=== PATIENT | female | born 1965 | race Caucasian/White ===

== ENCOUNTER 2017-06-17 09:18 | Inpatient (IN) | payer MEDICAID ==
[~2017-06-17] VITALS: Ht 167.6 cm; Wt 82.0 kg
[~2017-06-17 09:18] MED LIST: FLUC100T8 PO
[2017-06-17 10:01] LABS: BASOPHILS % (AUTO) 0.3 % (0-1); EOSINOPHILS # (AUTO) 0.2 X10'3 (0-0.9); HEMATOCRIT 43.1 % (35.0-45.0); HEMOGLOBIN 14.8 g/dl (12.0-16.0); LYMPHOCYTES # (AUTO) 1.6 X10'3 (1.1-4.8); LYMPHOCYTES % (AUTO) 15.9 % (21-51); MEAN CORPUSCULAR HEMOGLOBIN 32.4 PG (27.0-31.0); MEAN CORPUSCULAR HGB CONC 34.4 % (33.0-36.5); MEAN CORPUSCULAR VOLUME 94.2 FL (78-98); MEAN PLATELET VOLUME 8.2 FL (7.4-10.4); MONOCYTES # (AUTO) 0.5 X10'3 (0-0.9); MONOCYTES % (AUTO) 5.1 % (2-12); NEUTROPHILS # (AUTO) 7.9 X10'3 (1.8-7.7); NEUTROPHILS % (AUTO) 76.7 % (42-75); PLATELET COUNT 303 X10'3 (140-440); RED BLOOD COUNT 4.58 X10'6 (4.20-5.60); RED CELL DISTRIBUTION WIDTH 13.9 % (11.5-14.5); WHITE BLOOD COUNT 10.3 X10'3 (4.5-11.0)
[2017-06-17 10:14] LABS: ALANINE AMINOTRANSFERASE 17 U/L (12-78); ALBUMIN 3.9 G/DL (3.4-5.0); ALBUMIN/GLOBULIN RATIO 1.1 (1.1-1.5); ALKALINE PHOSPHATASE 66 IU/L (46-116); ANION GAP 9 (8-16); ASPARTATE AMINO TRANSFERASE 7 U/L (10-37); BILIRUBIN,TOTAL 0.3 MG/DL (0.1-1.0); BLOOD UREA NITROGEN 15 MG/DL (7-18); BUN/CREATININE RATIO 18.8 (6.6-38.0); CHLORIDE 109 MMOL/L (99-107); GLUCOSE 122 MG/DL (70-104); LIPASE 79 U/L (73-393); POTASSIUM 3.6 MMOL/L (3.5-5.1); SODIUM 143 MMOL/L (135-145); TOTAL CARBON DIOXIDE 25.5 MMOL/L (24-32); TOTAL PROTEIN 7.5 G/DL (6.4-8.2); eGFR 75 ML/MIN
[2017-06-17 10:16] LABS: URINE HCG NEGATIVE (NEG)
[2017-06-17 10:25] LABS: CLARITY,URINE SLIGHTLY CLOUDY (Clear); GLUCOSE, URINE NEGATIVE (Neg); KETONES,URINE TRACE mg/dl (Neg); LEUKOCYTE ESTERASE ,URINE NEGATIVE (Neg); NITRITES, URINE NEGATIVE (Neg); OCCULT BLOOD,URINE LARGE (Neg); PROTEIN,URINE NEGATIVE (Neg); UROBILINOGEN,URINE 0.2 E.U/dL (0.2-1.0)
[2017-06-17 10:26] LABS: COLOR,URINE DARK YELLOW (Yellow); UA COLLECTION TYPE CLN CATCH MIDSTREAM
[2017-06-17 10:33] LABS: WBC,URINE 0-4 /HPF (0-4)
[2017-06-17 10:34] LABS: BACTERIA,URINE FEW /HPF (Neg); MUCUS STRANDS MANY /LPF (Neg); RBC,URINE NONE SEEN /HPF (0-2); SQUAMOUS EPITHELIAL CELL,UR MANY /LPF (FEW)
[2017-06-17] MEDS ORDERED: normal saline 1000ml 1,000 ML IV SCH (10:45)
[2017-06-17] MEDS ORDERED: morphine 5 MG/ML injection IV ONE (10:45)
[2017-06-17] MEDS ORDERED: ondansetron/PF 4mg/2ml inj IV ONE (10:45)
[2017-06-17] MEDS ORDERED: morphine 2 MG/ML inj. syringe IV ONE ×2 (10:55→11:50)
[2017-06-17] MEDS: normal saline 1000ml 1,000 ML IV SCH ×2 (12:32→17:43)
[2017-06-17] MEDS ORDERED: HYDROcodone/acetaminophen 5mg/325mg tablet PO PRN (12:35)
[2017-06-17] MEDS ORDERED: magnesium 2GM in 50ml NS 50 ML IV PRN (12:35)
[2017-06-17] MEDS ORDERED: mag hydrox/Alum hydrox/simeth 30ml oral suspension PO PRN (12:35)
[2017-06-17] MEDS ORDERED: potassium Cl 40MEQ/NS 500ml 500 ML IV PRN ×2 (12:35)
[2017-06-17] MEDS ORDERED: ondansetron/PF 4mg/2ml inj IV PRN (12:35)
[2017-06-17] MEDS ORDERED: morphine 2 MG/ML inj. syringe IV PRN ×2 (12:35)
[2017-06-17] MEDS ORDERED: potassium Cl 20 mEq SR tablet PO PRN ×2 (12:35)
[2017-06-17] MEDS ORDERED: magnesium 4gm in 100ml NS 100 ML IV PRN (12:35)
[2017-06-17] MEDS ORDERED: acetaminophen 325mg tablet PO PRN ×2 (12:35)
[2017-06-17] MEDS ORDERED: magnesium Cl slow-release 64mg tablet PO PRN (12:35)
[2017-06-17] MEDS ORDERED: nicotine 21mg patch - 24 hr TD ONE (12:55)
[2017-06-17] MEDS ORDERED: BUS15T (12:58)
[2017-06-17] MEDS: metroNIDAZOLE 500mg tablet PO SCH ×2 (13:01→23:35)
[2017-06-17] MEDS ORDERED: TOPI100T18 PO (13:03)
[2017-06-17] MEDS ORDERED: OMEP20TA23 PO (13:04)
[2017-06-17] MEDS ORDERED: TIOT4MIS5 (13:05)
[2017-06-17] MEDS ORDERED: NALT50TA PO (13:06)
[2017-06-17 14:07] VITALS: BP 105/64
[2017-06-17 20:00] VITALS: BP 115/68
[2017-06-17] MEDS: HYDROcodone/acetaminophen 10/325mg tab PO PRN (20:33)
[2017-06-17] MEDS: docusate sod 100mg capsule PO SCH (20:34)
[2017-06-17] MEDS ORDERED: temazepam 15mg capsule PO PRN (21:00)
[2017-06-17] MEDS: diatr meglu/diatrizoate 30ml oral sol.-(3 dose) bottle PO SCH (21:22)
[2017-06-18] VITALS: BP 110/66
[2017-06-18] MEDS: HYDROcodone/acetaminophen 10/325mg tab PO PRN ×2 (01:13→05:13)
[2017-06-18] MEDS: normal saline 1000ml 1,000 ML IV SCH ×2 (01:14→08:53)
[2017-06-18 05:50] LABS: BASOPHILS % (AUTO) 0.4 % (0-1); EOSINOPHILS # (AUTO) 0.3 X10'3 (0-0.9); EOSINOPHILS % (AUTO) 3.7 % (0-6); HEMATOCRIT 36.1 % (35.0-45.0); HEMOGLOBIN 12.5 g/dl (12.0-16.0); LYMPHOCYTES # (AUTO) 2.8 X10'3 (1.1-4.8); LYMPHOCYTES % (AUTO) 37.1 % (21-51); MEAN CORPUSCULAR HEMOGLOBIN 32.1 PG (27.0-31.0); MEAN CORPUSCULAR HGB CONC 34.5 % (33.0-36.5); MEAN PLATELET VOLUME 7.9 FL (7.4-10.4); MONOCYTES # (AUTO) 0.6 X10'3 (0-0.9); MONOCYTES % (AUTO) 7.5 % (2-12); NEUTROPHILS # (AUTO) 3.8 X10'3 (1.8-7.7); NEUTROPHILS % (AUTO) 51.3 % (42-75); PLATELET COUNT 240 X10'3 (140-440); RED BLOOD COUNT 3.89 X10'6 (4.20-5.60); RED CELL DISTRIBUTION WIDTH 13.7 % (11.5-14.5); WHITE BLOOD COUNT 7.5 X10'3 (4.5-11.0)
[2017-06-18 06:27] LABS: ALANINE AMINOTRANSFERASE 16 U/L (12-78); ALKALINE PHOSPHATASE 53 IU/L (46-116); ANION GAP 8 (8-16); ASPARTATE AMINO TRANSFERASE 9 U/L (10-37); BILIRUBIN,TOTAL 0.4 MG/DL (0.1-1.0); BLOOD UREA NITROGEN 10 MG/DL (7-18); BUN/CREATININE RATIO 12.5 (6.6-38.0); CALCIUM 7.8 MG/DL (8.5-10.1); CHLORIDE 111 MMOL/L (99-107); GLUCOSE 88 MG/DL (70-104); MAGNESIUM 1.7 MG/DL (1.5-2.4); POTASSIUM 3.2 MMOL/L (3.5-5.1); SODIUM 144 MMOL/L (135-145); TOTAL CARBON DIOXIDE 24.9 MMOL/L (24-32); TOTAL PROTEIN 5.9 G/DL (6.4-8.2); eGFR 75 ML/MIN
[2017-06-18 07:41] VITALS: BP 106/68
[2017-06-18] MEDS ORDERED: K and/or MAG REPLACEMENT MC SCH (08:00)
[2017-06-18] MEDS ORDERED: enoxaparin 40mg/0.4ml syringe SQ SCH (08:00)
[2017-06-18] MEDS: diatr meglu/diatrizoate 30ml oral sol.-(3 dose) bottle PO SCH ×2 (08:30→10:45)
[2017-06-18] MEDS: metroNIDAZOLE 500mg tablet PO SCH (08:30)
[2017-06-18] MEDS: docusate sod 100mg capsule PO SCH (08:31)
[2017-06-18] MEDS ORDERED: iohexol 300mg/ml 100ml inj. ONE (10:35)
[2017-06-18 11:56] VITALS: BP 102/70
[2017-06-18] MEDS ORDERED: NAPR-56 PO (13:12)
[2017-06-18] MEDS ORDERED: lactobacillus rhamnosus 10,000 MMU CELLS/CAPSULE PO SCH (17:30)
[2017-06-19] MEDS ORDERED: pantoprazole 40mg Tablet.DR PO SCH (07:30)
[2017-06-19] MEDS ORDERED: topiramate 100mg tablet PO SCH (08:00)
[2017-06-19] MEDS ORDERED: naltrexone 50mg tablet PO SCH (08:00)
== END 2017-06-18 15:27 | disposition home IV services (08) | DRG 244 ==
LOC: ER 09:18 → ED HOLD 11:57 → SUR 3N 13:49
PROVIDERS: ADMIT Internal Medicine; ATTEND Internal Medicine
PROC: BW211ZZ Computerized Tomography (CT Scan) of Abdomen and Pelvis using Low Osmolar Contrast (ICD-10-PCS; principal; 2017-06-18)
DX: K57.32 Diverticulitis of large intestine without perforation or abscess without bleeding (principal); N20.0 Calculus of kidney; D35.02 Benign neoplasm of left adrenal gland; F41.9 Anxiety disorder, unspecified; M79.7 Fibromyalgia; J45.909 Unspecified asthma, uncomplicated; K52.9 Noninfective gastroenteritis and colitis, unspecified; Z88.2 Allergy status to sulfonamides
CPT/HCPCS: 36415; 74176; 76700; 76856; 80053; 81001; 81025; 83605; 83690; 83735; 85025; 87040; 87070; 87088; 96361; 96374; 96375; 99285; A4353; J1650; J2270; J2405; J3490; J7030; Q9963; Q9967

== ENCOUNTER 2018-09-30 06:50 | Emergency (ER) | payer MEDICARE, MEDICAID ==
[~2018-09-30] VITALS: Ht 167.6 cm; Wt 74.4 kg
[~2018-09-30 06:50] MED LIST changes: +BUS15T; -FLUC100T8 PO; +NALT50TA PO; +OMEP20TA23 PO; +TIOT4MIS5; +TOP100T PO
[2018-09-30 08:13] LABS: BASOPHILS % (AUTO) 0.3 % (0-1); EOSINOPHILS # (AUTO) 0.3 X10'3 (0-0.9); EOSINOPHILS % (AUTO) 2.5 % (0-6); HEMATOCRIT 42.1 % (35.0-45.0); HEMOGLOBIN 14.3 g/dl (12.0-16.0); LYMPHOCYTES # (AUTO) 2.7 X10'3 (1.1-4.8); LYMPHOCYTES % (AUTO) 23.4 % (21-51); MEAN CORPUSCULAR HEMOGLOBIN 32.5 PG (27.0-31.0); MEAN CORPUSCULAR HGB CONC 33.9 g/dL (33.0-36.5); MEAN CORPUSCULAR VOLUME 95.7 FL (78-98); MEAN PLATELET VOLUME 7.2 FL (7.4-10.4); MONOCYTES # (AUTO) 0.6 X10'3 (0-0.9); MONOCYTES % (AUTO) 5.5 % (2-12); NEUTROPHILS # (AUTO) 7.9 X10'3 (1.8-7.7); NEUTROPHILS % (AUTO) 68.3 % (42-75); PLATELET COUNT 298 X10'3 (140-440); WHITE BLOOD COUNT 11.6 X10'3 (4.5-11.0)
[2018-09-30 08:27] LABS: ALANINE AMINOTRANSFERASE 17 U/L (12-78); ALBUMIN 3.7 G/DL (3.4-5.0); ALKALINE PHOSPHATASE 77 IU/L (46-116); ANION GAP 7 (8-16); ASPARTATE AMINO TRANSFERASE 11 U/L (10-37); BILIRUBIN,TOTAL 0.2 MG/DL (0.1-1.0); BLOOD UREA NITROGEN 11 MG/DL (7-18); BUN/CREATININE RATIO 14.1 (6.6-38.0); CALCIUM 9.5 MG/DL (8.5-10.1); CHLORIDE 108 MMOL/L (99-107); CREATININE 0.78 MG/DL (0.40-0.90); GLUCOSE 101 MG/DL (70-104); POTASSIUM 3.9 MMOL/L (3.5-5.1); SODIUM 141 MMOL/L (135-145); TOTAL PROTEIN 7.3 G/DL (6.4-8.2); eGFR 77 ML/MIN
[2018-09-30 08:28] VITALS: BP 125/64
[2018-09-30 08:43] LABS: CLARITY,URINE CLEAR (Clear); COLOR,URINE STRAW (Yellow); GLUCOSE, URINE NEGATIVE (Neg); KETONES,URINE NEGATIVE (Neg); LEUKOCYTE ESTERASE ,URINE NEGATIVE (Neg); NITRITES, URINE NEGATIVE (Neg); OCCULT BLOOD,URINE NEGATIVE (Neg); PH,URINE 5.5 (4.8-8.0); PROTEIN,URINE NEGATIVE (Neg); UROBILINOGEN,URINE 0.2 E.U/dL (0.2-1.0)
[2018-09-30 08:45] LABS: UA COLLECTION TYPE CLN CATCH MIDSTREAM
[2018-09-30] MEDS ORDERED: PRED20TA PO (08:52)
== END 2018-09-30 09:03 | disposition home or self-care (01) ==
LOC: ER 06:50
DX: M79.89 Other specified soft tissue disorders (principal); J45.909 Unspecified asthma, uncomplicated; F17.200 Nicotine dependence, unspecified, uncomplicated; F12.90 Cannabis use, unspecified, uncomplicated; Z88.2 Allergy status to sulfonamides; Z88.5 Allergy status to narcotic agent; Z88.8 Allergy status to other drugs, medicaments and biological substances; Z79.899 Other long term (current) drug therapy; Z98.890 Other specified postprocedural states
CPT/HCPCS: 36415; 80053; 81003; 84550; 85025; 99283

== ENCOUNTER 2019-06-04 10:21 | Emergency (ER) | payer MEDICARE, MEDICAID ==
[~2019-06-04] VITALS: Ht 167.6 cm; Wt 69.5 kg
[2019-06-04 10:22] VITALS: BP 124/85
[2019-06-04] MEDS ORDERED: LIDOcaine 5% patch TP STA (11:23)
[2019-06-04] MEDS ORDERED: ketorolac tromethamine 15mg/ml inj. IM ONE (11:25)
[2019-06-04] MEDS ORDERED: CYCL-1 PO (12:45)
== END 2019-06-04 13:03 | disposition home or self-care (01) ==
LOC: ER 10:21
DX: M54.2 Cervicalgia (principal); M54.6 Pain in thoracic spine; J45.909 Unspecified asthma, uncomplicated; G89.29 Other chronic pain; M79.7 Fibromyalgia; F12.90 Cannabis use, unspecified, uncomplicated; Z90.89 Acquired absence of other organs; Z88.2 Allergy status to sulfonamides; Z88.5 Allergy status to narcotic agent; Z79.899 Other long term (current) drug therapy; W01.198A Fall on same level from slipping, tripping and stumbling with subsequent striking against other object, initial encounter; Y93.89 Activity, other specified; Y92.098 Other place in other non-institutional residence as the place of occurrence of the external cause; Y99.9 Unspecified external cause status
CPT/HCPCS: 72040; 72074; 96372; 99284; J1885

== ENCOUNTER 2020-10-09 14:35 | Emergency (ER) | payer MEDICARE, MEDICAID ==
[~2020-10-09] VITALS: Ht 167.6 cm; Wt 89.4 kg
[~2020-10-09 14:35] MED LIST changes: +CYCL-1 PO
[2020-10-09 15:03] VITALS: BP 146/96
[2020-10-09] MEDS ORDERED: Cipro HC otic suspension 10ML bottle EACH EAR STA (16:16)
== END 2020-10-09 16:38 | disposition home or self-care (01) ==
LOC: ER 14:36
DX: H66.91 Otitis media, unspecified, right ear (principal); H92.01 Otalgia, right ear; H72.91 Unspecified perforation of tympanic membrane, right ear; J45.909 Unspecified asthma, uncomplicated; G89.29 Other chronic pain; F41.9 Anxiety disorder, unspecified; F12.90 Cannabis use, unspecified, uncomplicated; Z90.89 Acquired absence of other organs; Z88.2 Allergy status to sulfonamides; Z88.5 Allergy status to narcotic agent; Z88.8 Allergy status to other drugs, medicaments and biological substances; Z79.899 Other long term (current) drug therapy
CPT/HCPCS: 99281

== ENCOUNTER 2021-01-24 10:57 | Emergency (ER) | payer MEDICARE, MEDICAID ==
[~2021-01-24] VITALS: Ht 167.6 cm; Wt 80.0 kg
[2021-01-24 13:02] VITALS: BP 143/67
== END 2021-01-24 13:04 | disposition home or self-care (01) ==
LOC: ER 10:58
DX: M79.604 Pain in right leg (principal); R60.0 Localized edema; J45.909 Unspecified asthma, uncomplicated; G89.29 Other chronic pain; F41.9 Anxiety disorder, unspecified; F12.90 Cannabis use, unspecified, uncomplicated; Z90.89 Acquired absence of other organs; Z98.890 Other specified postprocedural states; Z88.2 Allergy status to sulfonamides; Z88.5 Allergy status to narcotic agent; Z88.8 Allergy status to other drugs, medicaments and biological substances; Z79.899 Other long term (current) drug therapy
CPT/HCPCS: 93971; 99284

== ENCOUNTER 2021-12-16 10:10 | Emergency (ER) | payer MEDICARE, MEDICAID ==
[~2021-12-16] VITALS: Ht 167.6 cm; Wt 75.0 kg
[2021-12-16 10:12] VITALS: BP 111/75
== END 2021-12-16 11:56 | disposition home or self-care (01) ==
LOC: ER 10:11
DX: M71.21 Synovial cyst of popliteal space [Baker], right knee (principal); I80.01 Phlebitis and thrombophlebitis of superficial vessels of right lower extremity; G89.29 Other chronic pain; M54.9 Dorsalgia, unspecified; F41.9 Anxiety disorder, unspecified; J45.909 Unspecified asthma, uncomplicated; F17.200 Nicotine dependence, unspecified, uncomplicated; F12.10 Cannabis abuse, uncomplicated; Z88.2 Allergy status to sulfonamides; Z79.899 Other long term (current) drug therapy; Z88.5 Allergy status to narcotic agent
CPT/HCPCS: 93971; 99284

== ENCOUNTER 2022-04-11 10:11 | Emergency (ER) | payer MEDICARE, MEDICAID ==
[~2022-04-11] VITALS: Ht 167.6 cm; Wt 72.0 kg
[2022-04-11 10:27] VITALS: BP 108/78
[2022-04-11] MEDS ORDERED: ibuprofen tablet 400 MG TABLET PO ONE (14:10)
[2022-04-11] MEDS ORDERED: penicillin V potassium 500mg tablet PO ONE (14:10)
[2022-04-11] MEDS ORDERED: PENI500T2 PO ×4 (14:16→14:57)
[2022-04-11] MEDS ORDERED: IBUP-1984 PO ×4 (14:16→14:57)
== END 2022-04-11 14:38 | disposition home or self-care (01) ==
LOC: ER 10:12
DX: K04.7 Periapical abscess without sinus (principal); J45.909 Unspecified asthma, uncomplicated; F12.90 Cannabis use, unspecified, uncomplicated; Z88.2 Allergy status to sulfonamides; Z88.5 Allergy status to narcotic agent
CPT/HCPCS: 99283

== ENCOUNTER 2022-05-16 12:16 | Emergency (ER) | payer MEDICARE, MEDICAID ==
[~2022-05-16] VITALS: Ht 167.6 cm; Wt 71.0 kg
[2022-05-16 12:22] VITALS: BP 137/78
[2022-05-16] MEDS ORDERED: clindamycin 150mg capsule PO ONE (15:00)
[2022-05-16] MEDS ORDERED: CLIN-30 PO ×3 (15:54→15:55)
== END 2022-05-16 16:03 | disposition home or self-care (01) ==
LOC: ER 12:17
DX: K04.7 Periapical abscess without sinus (principal); G89.29 Other chronic pain; M54.9 Dorsalgia, unspecified; F31.9 Bipolar disorder, unspecified; J45.909 Unspecified asthma, uncomplicated; Z88.2 Allergy status to sulfonamides
CPT/HCPCS: 70100; 99283

== ENCOUNTER 2023-01-03 09:29 | Emergency (ER) | payer MEDICARE, MEDICAID ==
[~2023-01-03] VITALS: Ht 167.6 cm; Wt 77.3 kg
[~2023-01-03 09:29] MED LIST changes: +CLIN-30 PO
[2023-01-03 09:42] VITALS: TEMP 97.9
--- NOTE | 2023-01-03 10:05 | NUR ---
RN PLACED PT IN [facility] AND PLACED CART IN FRONT OF PT ROOM.
[2023-01-03] MEDS ORDERED: ALBU18HF2 INH (10:30)
[2023-01-03] MEDS ORDERED: GUAI600T45 PO (10:30)
[2023-01-03] MEDS ORDERED: DEXA6TAB PO (10:30)
[2023-01-03 10:40] VITALS: BP 128/81; PULSE 78; RESP 19; O2SAT 98
[2023-01-03] MEDS ORDERED: DEXAMETHASONE 6 MG TABLET PO SCH (10:40)
== END 2023-01-03 10:45 | disposition home or self-care (01) ==
LOC: ER 09:29
DX: U07.1 COVID-19 (principal); J45.909 Unspecified asthma, uncomplicated; G89.29 Other chronic pain; M54.9 Dorsalgia, unspecified; F41.9 Anxiety disorder, unspecified; F12.10 Cannabis abuse, uncomplicated; Z88.2 Allergy status to sulfonamides; Z88.1 Allergy status to other antibiotic agents; Z88.5 Allergy status to narcotic agent; Z88.8 Allergy status to other drugs, medicaments and biological substances
CPT/HCPCS: 71045; 99283; J8540

== ENCOUNTER 2023-04-10 16:12 | Emergency (ER) | payer MEDICARE, MEDICAID ==
[~2023-04-10] VITALS: Ht 167.6 cm; Wt 78.7 kg
[~2023-04-10 16:12] MED LIST changes: +ALBU18HF2 INH; +DEXA6TAB PO; +GUAI600T45 PO
[2023-04-10] MEDS ORDERED: ipratropium/albuterol 3ml nebule NEB STA (16:18)
[2023-04-10 17:45] VITALS: PULSE 84; RESP 16; O2SAT 95
[2023-04-10 17:56] VITALS: PULSE 94; RESP 16; O2SAT 99
[2023-04-10] MEDS ORDERED: albuterol 2.5 MG/3 ML nebule NEB ONE (19:00)
[2023-04-10] MEDS ORDERED: predniSONE 20 mg tablet PO ONE (19:00)
[2023-04-10] MEDS ORDERED: ipratropium 0.5 MG/2.5ML nebule IH ONE (19:03)
[2023-04-10] MEDS ORDERED: ALBUTEROL (19:10)
[2023-04-10 19:11] VITALS: PULSE 88; RESP 16; O2SAT 96
[2023-04-10 19:18] VITALS: PULSE 88; RESP 16; O2SAT 99
[2023-04-10 19:32] VITALS: BP 113/86; PULSE 87; RESP 16; TEMP 98.4; O2SAT 97
== END 2023-04-10 19:35 | disposition home or self-care (01) ==
LOC: ER 16:12
DX: J44.1 Chronic obstructive pulmonary disease with (acute) exacerbation (principal); J45.909 Unspecified asthma, uncomplicated; F41.9 Anxiety disorder, unspecified; Z88.2 Allergy status to sulfonamides; Z88.0 Allergy status to penicillin; Z79.899 Other long term (current) drug therapy
CPT/HCPCS: 71045; 94640; 99284; J7512; 94760

== ENCOUNTER 2023-04-12 16:48 | Emergency (ER) | payer MEDICARE, MEDICAID ==
[~2023-04-12] VITALS: Ht 167.6 cm; Wt 78.5 kg
[~2023-04-12 16:48] MED LIST changes: +ALBUTEROL
[2023-04-12 16:59] VITALS: TEMP 98.7
[2023-04-12 17:31] LABS: BASOPHILS % (AUTO) 0.3 % (0-1); EOSINOPHILS # (AUTO) 0.1 X10'3 (0-0.9); EOSINOPHILS % (AUTO) 0.8 % (0-6); HEMATOCRIT 42.2 % (35.0-45.0); HEMOGLOBIN 14.4 g/dl (12.0-16.0); LYMPHOCYTES # (AUTO) 2.2 X10'3 (1.1-4.8); LYMPHOCYTES % (AUTO) 27.3 % (21-51); MEAN CORPUSCULAR HEMOGLOBIN 31.9 PG (27.0-31.0); MEAN CORPUSCULAR HGB CONC 34.2 g/dL (33.0-36.5); MEAN CORPUSCULAR VOLUME 93.3 FL (78-98); MONOCYTES # (AUTO) 0.4 X10'3 (0-0.9); MONOCYTES % (AUTO) 5.1 % (2-12); NEUTROPHILS # (AUTO) 5.4 X10'3 (1.8-7.7); NEUTROPHILS % (AUTO) 66.5 % (42-75); PLATELET COUNT 210 X10'3 (140-440); RED BLOOD COUNT 4.52 X10'6 (4.20-5.60); WHITE BLOOD COUNT 8.1 X10'3 (4.5-11.0)
[2023-04-12 17:41] LABS: D-DIMER 0.26 MG/L FEU (0-0.50)
[2023-04-12 17:44] LABS: ALANINE AMINOTRANSFERASE 20 U/L (12-78); ALBUMIN/GLOBULIN RATIO 1.1 (1.1-1.5); ALKALINE PHOSPHATASE 74 IU/L (46-116); ANION GAP 8 (8-16); ASPARTATE AMINO TRANSFERASE 18 U/L (10-37); BILIRUBIN,TOTAL 0.3 MG/DL (0.1-1.0); BLOOD UREA NITROGEN 8 MG/DL (7-18); BUN/CREATININE RATIO 9.8 (10.0-20.0); CALCIUM 9.5 MG/DL (8.5-10.1); CHLORIDE 103 MMOL/L (99-107); CREATININE 0.82 MG/DL (0.40-0.90); GLUCOSE 113 MG/DL (70-104); POTASSIUM 4.2 MMOL/L (3.5-5.1); SODIUM 139 MMOL/L (135-145); TOTAL CARBON DIOXIDE 28.4 MMOL/L (24-32); TOTAL PROTEIN 7.6 G/DL (6.4-8.2); eCRCL 70 ML/MIN; eGFR 72 ML/MIN
[2023-04-12 17:52] LABS: PRO BRAIN NATRIURETIC PEPTIDE 152 PG/ML (0-125)
[2023-04-12 19:15] VITALS: BP 111/81; PULSE 83; RESP 16; O2SAT 95
[2023-04-12] MEDS ORDERED: PRED50TA PO (19:22)
[2023-04-12] MEDS ORDERED: dexamethasone sod phosphate 10mg/ml inj PO STA (19:22)
[2023-04-12] MEDS ORDERED: DOXYCYCLINE 100MG CAPSULE PO STA (19:22)
[2023-04-12] MEDS ORDERED: AZIT250T27 PO (19:22)
[2023-04-12] MEDS ORDERED: DOXY100C77 PO (19:22)
== END 2023-04-12 19:37 | disposition home or self-care (01) ==
LOC: ER 16:49
DX: J45.901 Unspecified asthma with (acute) exacerbation (principal); G89.29 Other chronic pain; M54.9 Dorsalgia, unspecified; J45.909 Unspecified asthma, uncomplicated; F41.9 Anxiety disorder, unspecified; F12.10 Cannabis abuse, uncomplicated; Z88.2 Allergy status to sulfonamides; Z88.1 Allergy status to other antibiotic agents; Z88.8 Allergy status to other drugs, medicaments and biological substances; Z79.899 Other long term (current) drug therapy
CPT/HCPCS: 36415; 71045; 80053; 83880; 84484; 85025; 85379; 93005; 99285; J1100

== ENCOUNTER 2024-10-20 08:31 | Outpatient (CLI) | payer MEDICARE, MEDICAID ==
[~2024-10-20 08:31] MED LIST changes: -NALT50TA PO; +NALT50TA5 PO; +PRED50TA PO
--- NOTE | 2024-10-20 09:52 | VASCULAR REPORT ---
VASC VL VENOUS VL VENOUS 10/20/2024 08:43 AM Clinical History: Left leg swelling. Status post knee surgery 8 days ago. Comparison: None Technique: Duplex Doppler evaluation of the deep venous system of the left lower extremity from the common femor al vein to the popliteal vein including color Doppler and spectral/pulsed waveform analysis was perfo rmed. Findings: The common femoral vein demonstrates appropriate compressibility and waveform variability. There is compressibility/patency of the great saphenous vein at the proximal thigh. The femoral vein demonstrates appropriate compressibility and waveform variability. The deep femoral vein demonstrates appropriate compressibility and waveform variability. The popliteal vein demonstrates appropriate compressibility and waveform variability. There is color flow in the tibioperoneal trunk and posterior tibial vein. Subcutaneous edema is seen in the left calf. The contralateral right common femoral vein is patent with normal spontaneous respiratory phasic flow and good augmentation documented. Impression: 1. No deep venous thrombosis left lower extremity. If clinical concern/symptoms persist or worsen, s hort-interval follow-up study is suggested. 2. Subcutaneous edema in the left calf.
== END 2024-10-20 23:59 | disposition home or self-care (01) ==
LOC: VAS 08:31
PROVIDERS: ATTEND Orthopaedic Surgery
DX: M17.12 Unilateral primary osteoarthritis, left knee (principal); Z98.890 Other specified postprocedural states
CPT/HCPCS: 93971